=== PATIENT | male | born 1955 | race African-American/Black ===

== ENCOUNTER 2016-08-23 16:19 | Emergency (ER) | payer OTHER ==
[~2016-08-23] VITALS: Ht 180.3 cm; Wt 100.0 kg
[2016-08-23 16:24] VITALS: BP 139/65
== END 2016-08-23 19:15 | disposition left against medical advice (07) ==
LOC: ER 16:39
DX: Z53.21 Procedure and treatment not carried out due to patient leaving prior to being seen by health care provider (principal)

== ENCOUNTER 2016-08-24 03:43 | Emergency (ER) | payer OTHER ==
[~2016-08-24] VITALS: Ht 180.3 cm; Wt 100.0 kg
[2016-08-24] MEDS ORDERED: ACETAMINOPHEN 325MG TABLET PO ONE (06:45)
[2016-08-24 08:55] VITALS: BP 154/91
== END 2016-08-24 09:23 | disposition home or self-care (01) ==
LOC: ER 03:43
DX: S20.212A Contusion of left front wall of thorax, initial encounter (principal); S00.93XA Contusion of unspecified part of head, initial encounter; M25.561 Pain in right knee; H53.8 Other visual disturbances; I50.9 Heart failure, unspecified; I11.0 Hypertensive heart disease with heart failure; E11.9 Type 2 diabetes mellitus without complications; V43.92XA Unspecified car occupant injured in collision with other type car in traffic accident, initial encounter; Y93.89 Activity, other specified; Y92.89 Other specified places as the place of occurrence of the external cause; Y99.8 Other external cause status; F17.200 Nicotine dependence, unspecified, uncomplicated
CPT/HCPCS: 70450; 71101; 99284; Z7610

== ENCOUNTER 2017-09-20 01:44 | Inpatient (IN) | payer OTHER ==
[~2017-09-20] VITALS: Ht 180.3 cm; Wt 68.7 kg
[2017-09-20] MEDS ORDERED: ASPIRIN 81MG TABLET PO ONE (03:00)
[2017-09-20 03:43] LABS: CHLORIDE 106 mEq/L (98-107)
[2017-09-20 03:47] LABS: HEMOGLOBIN. 14.6 g/dL (14.0-18.0); INR 1.2; MEAN CORPUSCULAR HEMOGLOBIN 31.1 pg (28.0-32.0); MEAN CORPUSCULAR VOLUME 91.4 fL (80.0-94.0); MEAN PLATELET VOLUME 9.9 fl (7.4-10.4); PARTIAL THROMBOPLASTIN TIME 26.5 sec (23.4-31.0); PLATELET 175 x1000/uL (130-400); PROTHROMBIN TIME 12.2 sec (9.1-11.1)
[2017-09-20 04:17] LABS: PLATELET ESTIMATE NORMAL
[2017-09-20] MEDS ORDERED: ENOXAPARIN 100MG/ML SYR SUBCUT NR (05:15)
[2017-09-20 08:00] VITALS: BP 108/81
[2017-09-20 08:30] VITALS: BP 108/81
[2017-09-20] MEDS: METOPROLOL TARTRATE 25MG TABLET PO SCH ×2 (10:05→20:10)
[2017-09-20] MEDS: HYDROCODONE/ACETAMINOPHEN 5/325MG TABLET PO PRN ×2 (11:08→17:21)
[2017-09-20 12:00] VITALS: BP 124/44
[2017-09-20] MEDS ORDERED: INFLUENZA VIRUS VACCINE 0.5ML SYR IM ONE (12:00)
[2017-09-20] MEDS ORDERED: REGADENOSON 0.4 MG/5 ML IV NR (15:15)
[2017-09-20 16:00] VITALS: BP 118/56
[2017-09-20] MEDS: FUROSEMIDE 40MG TABLET PO SCH (16:02)
[2017-09-20] MEDS ORDERED: DEXTROSE 50% WATER 50ML SYRINGE IV PRN (18:30)
[2017-09-20] MEDS: BLOOD SUGAR DIAGNOSTIC STRIP TEST SCH (20:24)
[2017-09-20] MEDS: INSULIN LISPRO 100 UNITS/ML SUBCUT SCH (20:25)
[2017-09-20 20:42] VITALS: BP 106/64
[2017-09-20 23:54] LABS: CREATINE KINASE MB FRACTION 2.5 ng/mL (0.5-3.6)
[2017-09-21] VITALS: BP 105/67
[2017-09-21 04:00] VITALS: BP 121/59
[2017-09-21] MEDS: BLOOD SUGAR DIAGNOSTIC STRIP TEST SCH (06:41)
[2017-09-21 08:00] VITALS: BP 112/77
[2017-09-21] MEDS: INSULIN LISPRO 100 UNITS/ML SUBCUT SCH (08:04)
[2017-09-21] MEDS: METOPROLOL TARTRATE 25MG TABLET PO SCH (08:34)
[2017-09-21] MEDS: FUROSEMIDE 40MG TABLET PO SCH (08:34)
[2017-09-21] MEDS ORDERED: ASPIRIN 81MG TABLET PO SCH (09:00)
[2017-09-21] MEDS ORDERED: ENOXAPARIN 40MG/0.4ML SYR SUBCUT SCH (09:00)
[2017-09-21] MEDS ORDERED: REGADENOSON 0.4 MG/5 ML IV ONE (09:45)
[2017-09-21 12:00] VITALS: BP 115/75
[2017-09-21 12:28] VITALS: BP 120/85
== END 2017-09-21 15:22 | disposition home or self-care (01) | DRG 293 ==
LOC: ER 02:15 → 7WST 05:06 → EDBEDREQ 05:08 → ENRESERV 07:07
PROVIDERS: ADMIT Internal Medicine; ATTEND Internal Medicine
DX: I11.0 Hypertensive heart disease with heart failure (principal); R07.89 Other chest pain; I50.41 Acute combined systolic (congestive) and diastolic (congestive) heart failure; E11.9 Type 2 diabetes mellitus without complications; F17.210 Nicotine dependence, cigarettes, uncomplicated; F32.9 Major depressive disorder, single episode, unspecified; F41.9 Anxiety disorder, unspecified; G43.909 Migraine, unspecified, not intractable, without status migrainosus; G47.30 Sleep apnea, unspecified; I44.7 Left bundle-branch block, unspecified; I45.81 Long QT syndrome; I49.1 Atrial premature depolarization; M19.90 Unspecified osteoarthritis, unspecified site; Z79.82 Long term (current) use of aspirin; Z91.14 Patient's other noncompliance with medication regimen; Z71.6 Tobacco abuse counseling
CPT/HCPCS: 36415; 71045; 78452; 80053; 80061; 82550; 82553; 82962; 83036; 83880; 84484; 85025; 85610; 85730; 93005; 93017; 93306; 96372; 99285; A9500; J1650; J2785